=== PATIENT | male | born 1975 | race Hispanic/Latino ===

== ENCOUNTER 2017-09-11 02:53 | Emergency (ER) | payer BC ==
[~2017-09-11] VITALS: Ht 180.3 cm; Wt 108.9 kg
[2017-09-11] MEDS ORDERED: DONNATAL/LIDOCAINE/MAALOX 30 ML SUSP PO ONE (03:30)
[2017-09-11] MEDS ORDERED: ONDANSETRON HCL INJ 2 MG/ML VIAL IV STA (03:41)
[2017-09-11] MEDS ORDERED: MORPHINE SULFATE 2 MG/ML SYR IV STA (03:41)
[2017-09-11] MEDS ORDERED: METOCLOPRAMIDE HCL 10 MG/2ML VIAL IV ONE (03:45)
[2017-09-11 04:35] VITALS: BP 148/78
== END 2017-09-11 04:39 | disposition home or self-care (01) ==
LOC: FSED 02:53
DX: K80.50 Calculus of bile duct without cholangitis or cholecystitis without obstruction (principal); K21.9 Gastro-esophageal reflux disease without esophagitis; R10.11 Right upper quadrant pain; I10 Essential (primary) hypertension; E11.9 Type 2 diabetes mellitus without complications; E78.5 Hyperlipidemia, unspecified; Z95.1 Presence of aortocoronary bypass graft; K76.0 Fatty (change of) liver, not elsewhere classified; R10.13 Epigastric pain
CPT/HCPCS: 74176; 80053; 85025; 96374; 99283; J2270; J2405; J2765

== ENCOUNTER 2021-11-20 08:40 | Emergency (ER) | payer SELFPAY ==
[~2021-11-20] VITALS: Ht 180.3 cm; Wt 103.4 kg
[2021-11-20] MEDS ORDERED: ACETAMINOPHEN 325 MG TAB PO ONE (09:15)
[2021-11-20] MEDS ORDERED: IBUPROFEN 200 MG TAB PO ONE (09:15)
[2021-11-20] MEDS ORDERED: CEFDINIR300 MG PO (09:25)
[2021-11-20] MEDS ORDERED: ACETAMINOPHEN500 MG PO (09:25)
[2021-11-20] MEDS ORDERED: ACETAMINOPHEN 325 MG TAB ONE (09:27)
[2021-11-20] MEDS ORDERED: IBUPROFEN 600 MG TAB ONE (09:27)
[2021-11-20] MEDS ORDERED: PIPERACILLIN/TAZOBACTAM 3.375 GM VIAL ONE (09:28)
[2021-11-20] MEDS ORDERED: SODIUM CHLORIDE 0.9% 100 ML ONE (09:28)
== END 2021-11-20 09:58 | disposition home or self-care (01) ==
LOC: FSED 09:00
DX: H66.91 Otitis media, unspecified, right ear (principal); G51.0 Bell's palsy; R94.31 Abnormal electrocardiogram [ECG] [EKG]
CPT/HCPCS: 70450; 80048; 85025; 93005; 99283; J2543; J7050